=== PATIENT | female | born 1985 | race Caucasian/White ===

== ENCOUNTER 2020-04-06 18:08 | Emergency (ER) | payer OTHER, SELFPAY ==
--- NOTE | 2020-04-06 18:19 | ED.URI ---
HPI - URI/Sore Throat General Chief Complaint: Upper Respiratory Infection Stated Complaint: left ear pain Time Seen by Provider: 04/06/20 18:21 Source: patient and RN notes reviewed History of Present Illness HPI Narrative: Patient is a 34-year-old female who presents to the urgent care with complaints of left ear pain that started this afternoon. Patient states that she took 1 dose of ibuprofen and still noticed some throbbing. Patient denies of any other upper respiratory symptoms. Denies of any fever, nausea, vomiting, sore throat. Denies any recent swimming. Denies of drainage from the ear. No other acute complaints. No acute distress noted. Patient read the plan of care. Related Data Home Medications Medication Instructions Recorded Confirmed hydroxychloroquine 200 mg PO DAILY 04/06/20 04/06/20 lamotrigine 200 mg PO DAILY 04/06/20 04/06/20 norgestimate-ethinyl estradiol 1 tablet PO DAILY 04/06/20 04/06/20 [Tri-Sprintec (28)] Allergies Allergy/AdvReac Type Severity Reaction Status Date / Time No Known Allergies Allergy Unverified 11/30/18 10:11 Review of Systems Review of Systems: Narrative: CONSTITUTIONAL: Denies fever, chills, or sweats. EYES: Denies visual changes, redness, or discharge. ENT: Reports of left otalgia CARDIOVASCULAR: Denies chest pain, palpitations, or edema. RESPIRATORY: Denies cough or dyspnea. GASTROINTESTINAL: Denies abdominal pain, nausea, vomiting, or diarrhea. GENITOURINARY: Denies dysuria or hematuria. SKIN: Denies rash or itching. MUSCULOSKELETAL: Denies back pain, joint pain, or myalgia. NEUROLOGIC: Denies headache, numbness, or weakness. All other systems reviewed are negative, except as documented in HPI. PMFSH Comments At the time of my signature, I reviewed and agree with the nursing past medical, surgical, social, and family history. There is no relevant family history pertinent to the patient complaint. Exam Narrative: Exam Narrative: GENERAL: This is a well-nourished, well-developed patient, in no apparent distress. HEAD: normocephalic, atraumatic. EYES: PERRL. Sclera clear/white. Vision is grossly intact. EARS: External ears normal, auditory canals clear and without drainage, mildly injected left TM with moderate erythema and notable effusion, right TMs normal without perforation. Hearing grossly intact. NOSE: External nose normal with no obvious nasal discharge, nares without redness, no rhinorrhea. THROAT: Mucous membranes moist, posterior pharynx clear. NECK: Neck supple SKIN: warm, intact with no suspicious lesions or rash, good texture and turgor. NEURO: awake, alert, and oriented to person, place and time. There were no obvious focal neurologic abnormalities. EXTREMITIES: No clubbing, cyanosis, or edema. Course Vital Signs Vital signs: Vital Signs Temperature 97 F L 04/06/20 18:20 Pulse Rate 90 04/06/20 18:20 Respiratory Rate 18 04/06/20 18:20 Blood Pressure 135/84 04/06/20 18:20 Pulse Oximetry 100 04/06/20 18:20 Temperature 97 F L 04/06/20 18:20 Pulse Rate 90 04/06/20 18:20 Respiratory Rate 18 04/06/20 18:20 Blood Pressure 135/84 04/06/20 18:20 Pulse Oximetry 100 04/06/20 18:20 Reviewed MDM - URI/Sore Throat MDM Narrative Medical decision making narrative: Advised patient to complete oral antibiotic regimen as prescribed. Make sure to eat and drink with the medication. Do not put anything in the ear such as Q-tips, peroxide, water. Do not submerge your head underwater or do any type of diving for the next 3 to 5 days. Continue to use daily antihistamine as well as Flonase nasal spray prior to bedtime. Use Tylenol/ibuprofen as needed for pain. Follow-up with your PCP within 2 to 5 days or for worsening symptoms or failure to improve. Differential Diagnosis Differential diagnosis: Likely upper respiratory infection, otitis media, sinusitis, viral infection, bronchitis and pharyngitis Critical Care Time Critical Car
[2020-04-06 18:20] VITALS: BP 135/84; PULSE 90; RESP 18; TEMP 36.1; O2SAT 100
== END 2020-04-06 18:47 | disposition home or self-care (01) ==
PROVIDERS: Emergency Provider Nurse Practitioner Family
DX: H66.92 Otitis media, unspecified, left ear (principal); M19.90 Unspecified osteoarthritis, unspecified site; F32.9 Major depressive disorder, single episode, unspecified
CPT/HCPCS: 99213; G0463

== ENCOUNTER 2020-04-28 18:19 | Emergency (ER) | payer OTHER, SELFPAY ==
[2020-04-28 18:25] VITALS: BP 136/87; PULSE 84; RESP 16; TEMP 36.7; O2SAT 100
--- NOTE | 2020-04-28 18:29 | ED.GENADULT ---
HPI - General Adult General Chief complaint: Upper Respiratory Infection Stated complaint: sore throat/ears itchy/chest congestion Time Seen by Provider: 04/28/20 18:35 Source: patient and RN notes reviewed Mode of arrival: ambulatory Limitations: no limitations History of Present Illness HPI narrative: This is a 34 years old female presents to the office for an evaluation of URI for two days. Symptoms include bilateral ears itchy, headache, sore throat and chest congestion. She took one dose of OTC sinus congestion for her symptoms today. She works at the [employer]. Related Data Home Medications Medication Instructions Recorded Confirmed hydroxychloroquine 200 mg PO DAILY 04/06/20 04/06/20 lamotrigine 200 mg PO DAILY 04/06/20 04/06/20 norgestimate-ethinyl estradiol 1 tablet PO DAILY 04/06/20 04/06/20 [Tri-Sprintec (28)] Allergies Allergy/AdvReac Type Severity Reaction Status Date / Time No Known Allergies Allergy Verified 04/28/20 18:34 Review of Systems Review of Systems: Narrative: CONSTITUTIONAL: Denies fever, chills ENT: Reports sinus congestion/headache, sore throat. Reports otalgia. CARDIOVASCULAR: Denies chest pain, palpitation. Reports drainage in chest . RESPIRATORY: Denies dyspnea, wheezing, cough GASTROINTESTINAL: Denies abdominal pain, nausea, vomiting SKIN: Denies rash MUSCULOSKELETAL: Denies acute back pain NEUROLOGIC: Denies lightheaded All other systems reviewed are negative, except as documented in HPI. FOR[facility]LY [facility], [facility] Past Medical History Medical History (Updated 04/28/20 @ 18:52 by CHEMA Godinez) Anxiety and depression Comments At time of signature, I agree with nursing past medical, surgical, social and family history. There is no relevant family history pertinent to the presenting complaint. Exam Narrative: Exam Narrative: GENERAL: This is a well-nourished, well-developed patient, in no apparent distress. EARS: External ears normal, auditory canals clear and without drainage, TMs normal without perforation. Hearing grossly intact. NOSE: External nose normal with no obvious nasal discharge, nares without redness, no rhinorrhea. THROAT: Mucous membranes moist, posterior pharynx erythema with dryness. NECK: Neck supple, non-tender without lymphadenopathy, masses or thyromegaly. CARDIOVASCULAR: Regular rate and rhythm without murmurs, gallops, or rubs. RESPIRATORY: Clear to auscultation. Breath sounds equal bilaterally. No wheezes, rales, or rhonchi. GASTROINTESTINAL: Abdomen soft, non-tender, nondistended. Bowel sounds are active. No hepato-splenomegaly, or palpable masses. No guarding. SKIN: warm, intact with no suspicious lesions or rash, good texture and turgor. NEURO: awake, alert, and oriented to person, place and time. There were no obvious focal neurologic abnormalities. Steady gait [place] Coma Scale Eye Opening: Spontaneous 4 [place] Coma Scale Motor: Obeys Commands 6 [place] Coma Scale Verbal: Oriented 5 Medical Decision Making MDM Narrative Medical decision making narrative: Discharge instructions reviewed with patient, as well as provided in writing per nursing staff. The instructions also include specific and strict return/GO TO THE ER as well as f/u information. All questions have been answered, and the patient deny any further questions with discharge and discharge plan. Differential Diagnosis Differential Diagnosis: pneumonia, Allergic Rhinitis, Upper respiratory cough syndrome, Pharyngitis, Sinusitis, Bronchitis, otitis media, viral URI, Asthma/reactive airway disease, influenza Medical Records Medical records reviewed: Yes I reviewed the patient's medical records. Medical records narrative: 04/06/2020 Critical Care Time Critical Care Time Critical Care Time: No Discharge Plan Discharge Clinical Impression: Allergic sinusitis Patient Disposition: Home, Self-Care Condition: Stable Instructions: Sinusitis (ED) Additional Instructions: Treatment
== END 2020-04-28 18:50 | disposition home or self-care (01) ==
PROVIDERS: Emergency Provider Nurse Practitioner
DX: J30.9 Allergic rhinitis, unspecified (principal); Z20.828 Contact with and (suspected) exposure to other viral communicable diseases
CPT/HCPCS: 99211; G0463